=== PATIENT | female | born 1955 | race Caucasian/White ===

== ENCOUNTER 2020-01-15 12:48 | Outpatient (REF) | payer BC, SELFPAY ==
--- NOTE | 2020-01-15 13:00 | EEG_ITS ---
The waking background activity consists of a well-defined moderate voltage, 10 hertz posterior alpha frequency that is seen symmetrically and attenuates well with eye opening while low-voltage fast frequencies predominate anteriorly. Drowsiness is characterized by diffuse theta slowing. During sleep, symmetrical, frontal, central sleep spindles and vertex sharp transients developed over both hemispheres. Arousals are unremarkable. The patient remained asymptomatic. No focal, lateralizing, or paroxysmal discharges seen. IMPRESSION: This 24-hour ambulatory EEG is within normal limits. MD TIFFANY Hogan/GAVIN / [id number]
== END 2020-01-15 12:49 | disposition home or self-care (01) ==
LOC: HO.NEURO 12:48
PROVIDERS: PCP Internal Medicine; Visit Provider Psychiatry & Neurology Neurology
DX: G40.909 Epilepsy, unspecified, not intractable, without status epilepticus (principal)
CPT/HCPCS: 95708

== ENCOUNTER 2020-08-05 11:32 | Outpatient (REF) | payer OTHER, SELFPAY ==
[2020-08-05 13:37] LABS: Carbamazepine Tegretol 2.1 mcg/mL (5.0-12.0)
== END 2020-08-05 11:33 | disposition home or self-care (01) ==
LOC: HO.LAB 11:32
PROVIDERS: PCP Internal Medicine; Visit Provider Psychiatry & Neurology Neurology
DX: G40.909 Epilepsy, unspecified, not intractable, without status epilepticus (principal); Z79.899 Other long term (current) drug therapy
CPT/HCPCS: 36415; 80156